=== PATIENT | female | born 1945 | race Caucasian/White ===

== ENCOUNTER 2017-01-28 06:29 | Day surgery (SDC) | payer MEDICARE ==
[~2017-01-28 06:29] MED LIST: RINGERS SOLUTION,LACTATED 1,000 ML IV PRN; ceFAZolin SODIUM 1 GM VIAL IV PRN
--- OUTSIDE RECORDS SUMMARY | 2017-01-28 06:32 | XMS REPORT | Continuity of Care Document ---
:1945 Author Organization [facility] [place] [address] Care Team Providers Name Role Phone Unavailable Primary Care Provider Unavailable Source Comments This disclosure is being made pursuant to the [employer] program and maynot contain all information available regarding this patient.[facility] Active Allergies and Adverse Reactions Not on File Current Medications Be aware that medications may not be up to date as of this document. Alwaysverify current medications with the patient. Not on file Active Problems Not on file Social History Tobacco Use Types Packs/Day Years Used Date Never Assessed Plan of Care Health Maintenance Due Date Last Done Comments Retired-Pertussis Vaccine Adult 12/12/1962 Retired-Tetanus Vaccine Adult 12/12/1962 Mammogram 1983 Colonoscopy 12/12/1993 Well Adult Visit 12/12/1993 Zoster Vaccine 60+ 2003 Bone Density 12/12/2008 Retired-Pneumococcal 23 Vaccine-65+ yo 12/12/2008 Retired-INFLUENZA VACCINE 04/29/2015 Results from Last 3 Months Not on file
--- OUTSIDE RECORDS SUMMARY | 2017-01-28 06:32 | XMS REPORT | Continuity of Care Document ---
:1945 Author Organization [facility] Address [address] [place] [address] Phone [phone] Care Team Providers Name Role Phone Sisi Monsalve Primary Care Provider [phone] Source Comments This disclosure is being made pursuant to the Care Everywhere program, applicable federal and state laws, and may not contain all informaitonavailable regarding this patient.[facility] Active Allergies and Adverse Reactions No Known Allergies Current Medications Prescription Sig. Disp. Refills Start Date End Date Status amitriptyline 50 mg Take 75 mg by mouth at Active tablet bedtime. diltiazem 180 mg ER Take 180 mg by mouth Active capsule daily. triamterene-hydrochlo Take 1 Cap by mouth Active rothiazide 37.5-25 mg Every morning. per capsule meloxicam 15 mg Take 1 Tab by mouth 30 Tab 11 07/17/2012 Active tablet daily. Indications: OSTEOARTHRITIS Active Problems Problem Noted Date Limited systemic sclerosis 03/08/2012 Overview: Raynaud's. High positive anti-nucleolar.SONJA. Arthritis 2011 Migraines 2011 Positive SONJA (antinuclear antibody) 2011 Environmental allergies 2011 Hemorrhoids 2011 Depression 2011 Rheumatic fever 2011 Raynaud's disease 2011 Social History Tobacco Use Types Packs/Day Years Used Date Former Smoker Cigars Quit: 07/29/2011 Smokeless Tobacco: Never Used Comments:1 cigar per month Alcohol Use Drinks/Week oz/Week Comments Yes 6 Glasses of wine 3.0 Last Filed Vital Signs Vital Sign Reading Time Taken Blood Pressure 123/69 07/17/2012 3:40 PM [employer] [employer] Pulse 112 07/17/2012 3:40 PM [employer] [facility] Temperature 36.3 C (97.3 F) 07/17/2012 3:40 PM [employer] Respiratory Rate 16 03/08/2012 10:12 AM CDT Height 1.67 m (5' 5.75") 03/08/2012 10:12 AM CDT Weight 107.004 kg (235 lb 14.4 oz) 07/17/2012 3:40 PM [employer] Body Mass Index 38.37 07/17/2012 3:40 PM [employer] Oxygen Saturation - - Plan of Care Health Maintenance Due Date Last Done Comments Hepatitis B Vaccine (1 of 3 - Primary Series) 1945 Tdap Vaccine 12/12/1954 Lipid Disorder Screening 12/12/1961 Td Vaccine 12/12/1961 Mammogram 1983 Colonoscopy 12/12/1993 Zoster Vaccine 2003 Osteoporosis Screening (DXA Bone Density) 12/12/2008 Pneumococcal Vaccine (1 of 2 - PCV13) 12/12/2008 Influenza Vaccine: Seasonal (#1) 03/29/2016 Results from Last 3 Months Not on file
[2017-01-28] MEDS ORDERED: RINGERS SOLUTION,LACTATED 1,000 ML IV ONE (08:29)
[2017-01-28 12:05] VITALS: BP 144/79
== END 2017-01-28 06:30 | disposition home or self-care (01) ==
LOC: AMB 06:29
PROVIDERS: ATTEND Orthopaedic Surgery
PROC: 0RGW04Z Fusion of Right Finger Phalangeal Joint with Internal Fixation Device, Open Approach (ICD-10-PCS; principal; 2017-01-28 08:00)
DX: M20.091 Other deformity of right finger(s) (principal); M06.9 Rheumatoid arthritis, unspecified; M13.841 Other specified arthritis, right hand; I73.00 Raynaud's syndrome without gangrene; I10 Essential (primary) hypertension; E66.01 Morbid (severe) obesity due to excess calories; Z68.41 Body mass index [BMI] 40.0-44.9, adult

== ENCOUNTER 2017-04-20 09:01 | Day surgery (SDC) | payer MEDICARE ==
[2017-04-20] MEDS: RINGER'S SOLUTION,LACTATED 1,000 ML IV PRN (10:15)
[2017-04-20] MEDS: ceFAZolin SODIUM 1 GM VIAL IV PRN (11:40)
[2017-04-20] MEDS: BUPIVACAINE HCL 50 ML VIAL IJ ONE ×2 (11:55)
[2017-04-20 14:40] VITALS: BP 136/60
== END 2017-04-20 09:02 | disposition home or self-care (01) ==
LOC: AMB 09:01
PROVIDERS: ATTEND Orthopaedic Surgery
PROC: 0PBT0ZZ Excision of Right Finger Phalanx, Open Approach (ICD-10-PCS; 2017-04-20)
PROC: 0RGW04Z Fusion of Right Finger Phalangeal Joint with Internal Fixation Device, Open Approach (ICD-10-PCS; principal; 2017-04-20 13:45)
DX: M96.0 Pseudarthrosis after fusion or arthrodesis (principal); I10 Essential (primary) hypertension; M06.9 Rheumatoid arthritis, unspecified; Z68.38 Body mass index [BMI] 38.0-38.9, adult